=== PATIENT | male | born 1950 | race Caucasian/White ===

== ENCOUNTER 2017-06-02 12:58 | Inpatient (IN) | payer OTHER ==
[2017-06-02] MEDS: IPRATROPIUM (NEB) 0.5 MG/2.5 ML AMP NEB (14:31)
[2017-06-02] MEDS: ALBUTEROL 0.5% (NEB) 2.5 MG/0.5 ML AMP NEB (14:31)
[2017-06-02] MEDS: LORAZEPAM 2 MG INJ IV (14:48)
[2017-06-02] MEDS: SOD CHLORIDE 0.9% 1,000 ML IV (14:48)
[2017-06-02] MEDS: METHYLPREDNISOLONE 125 MG INJ IV (14:48)
[2017-06-02] MEDS: ONDANSETRON 4 MG INJ IV (14:56)
[2017-06-02] MEDS: HYDROmorphONE 1 MG/ML SYG IV (14:56)
[2017-06-02 15:16] LABS: ADD MAN DIFF? NO
[2017-06-02 15:18] LABS: WHITE BLOOD COUNT 9.2 10^3/ul (4.8-10.8)
[2017-06-02 15:18] LABS: ABNORMAL IP MESSAGE 1; BASOPHILS % 0.2 % (0.0-2.0); EOSINOPHILS # 0.5 10^3/ul (0.0-0.5); EOSINOPHILS % 5.1 % (0.0-7.0); HEMOGLOBIN 14.9 g/dl (14.0-18.0); LYMPHOCYTES # 0.3 10^3/ul (0.8-2.9); LYMPHOCYTES % 3.4 % (15.0-51.0); MEAN CORPUSCULAR HEMOGLOBIN 32.1 pg (29.0-33.0); MEAN CORPUSCULAR HGB CONC 33.1 g/dl (32.0-37.0); MEAN PLATELET VOLUME 11.9 fl (7.4-10.4); MONOCYTE # 1.1 10^3/ul (0.3-0.9); MONOCYTES % 11.4 % (0.0-11.0); NEUTROPHIL # 7.3 10^3/ul (1.6-7.5); PLATELET COUNT 200 10^3/UL (140-415); POSITIVE DIFF @See below; RED BLOOD COUNT 4.64 10^6/ul (4.70-6.10); RED CELL DISTRIBUTION WIDTH 12.3 % (11.5-14.5)
[2017-06-02 15:50] LABS: ALANINE AMINOTRANSFERASE 69 IU/L (13-69); ALBUMIN 4.6 g/dl (3.3-4.9); ALBUMIN/GLOBULIN RATIO 1.48; ALKALINE PHOSPHATASE 60 IU/L (42-121); ANION GAP 18 (8-16); ASPARTATE AMINO TRANSFERASE 44 IU/L (15-46); BILIRUBIN,INDIRECT 0.4 mg/dl (0-1.1); BILIRUBIN,TOTAL 0.4 mg/dl (0.2-1.3); BLOOD UREA NITROGEN 18 mg/dl (7-20); CALCIUM 9.2 mg/dl (8.4-10.2); CARBON DIOXIDE 27 mmol/L (21-31); CHLORIDE 96 mmol/L (97-110); CREATININE 0.92 mg/dl (0.61-1.24); GLUCOSE 102 mg/dl (70-220); POTASSIUM 4.7 mmol/L (3.5-5.1); SODIUM 136 mmol/L (135-144); TOTAL PROTEIN 7.7 g/dl (6.1-8.1)
[2017-06-02 15:55] LABS: B-TYPE NATRIURETIC PEPTIDE 258 PG/ML (0-125)
[2017-06-02] MEDS: IPRATROPIUM (NEB) 0.5 MG/2.5 ML AMP INH (18:44)
[2017-06-02] MEDS: ALBUTEROL 0.5% (NEB) 2.5 MG/0.5 ML AMP INH (18:44)
[2017-06-02] MEDS ORDERED: ACETAMINOPHEN 325 MG TAB PO ×2 (19:30→22:30)
[2017-06-02] MEDS ORDERED: ONDANSETRON 4 MG INJ IV (19:30)
[2017-06-02] MEDS ORDERED: NACL 0.9% 3 ML SYG IV (22:30)
[2017-06-02] MEDS ORDERED: ONDANSETRON 4 MG TAB PO (22:30)
[2017-06-02] MEDS ORDERED: DOCUSATE SODIUM 100 MG CAP PO (22:30)
[2017-06-02] MEDS: GUAIFENESIN 20 MG/ML 5ML CUP PO (23:17)
[2017-06-02] MEDS: IPRATROPIUM (NEB) 0.5 MG/2.5 ML AMP HHN (23:35)
[2017-06-03] MEDS: FAMOTIDINE 20 MG TAB PO ×3 (00:16→20:18)
[2017-06-03] MEDS: SOD CHLORIDE 0.9% 1,000 ML IV ×2 (00:16→11:03)
[2017-06-03] MEDS ORDERED: ALBUTEROL/IPRATROPIUM (NEB) 3 ML AMP HHN (01:00)
[2017-06-03] MEDS: IPRATROPIUM (NEB) 0.5 MG/2.5 ML AMP HHN ×6 (01:13→21:34)
[2017-06-03] MEDS: GUAIFENESIN 20 MG/ML 5ML CUP PO ×2 (01:30→03:49)
[2017-06-03] MEDS: LORAZEPAM 2 MG INJ IV (01:31)
[2017-06-03] MEDS: GUAIFENESIN/DM 5ML CUP PO ×5 (05:25→20:18)
[2017-06-03 06:51] LABS: ADD MAN DIFF? NO
[2017-06-03 06:56] LABS: ABNORMAL IP MESSAGE 1; BASOPHILS % 0.1 % (0.0-2.0); HEMATOCRIT 40.7 % (42.0-52.0); HEMOGLOBIN 13.6 g/dl (14.0-18.0); LYMPHOCYTES # 0.4 10^3/ul (0.8-2.9); LYMPHOCYTES % 4.4 % (15.0-51.0); MEAN CORPUSCULAR HEMOGLOBIN 32.2 pg (29.0-33.0); MEAN CORPUSCULAR HGB CONC 33.4 g/dl (32.0-37.0); MEAN CORPUSCULAR VOLUME 96.2 fl (82.0-101.0); MEAN PLATELET VOLUME 12.1 fl (7.4-10.4); MONOCYTE # 1.1 10^3/ul (0.3-0.9); MONOCYTES % 11.8 % (0.0-11.0); NEUTROPHIL # 7.9 10^3/ul (1.6-7.5); NEUTROPHILS % 82.9 % (39.0-77.0); PLATELET COUNT 188 10^3/UL (140-415); POSITIVE DIFF @See below; RED BLOOD COUNT 4.23 10^6/ul (4.70-6.10); RED CELL DISTRIBUTION WIDTH 12.6 % (11.5-14.5)
[2017-06-03 06:56] LABS: WHITE BLOOD COUNT 9.6 10^3/ul (4.8-10.8)
[2017-06-03 07:54] LABS: ANION GAP 17 (8-16); BLOOD UREA NITROGEN 19 mg/dl (7-20); CALCIUM 8.7 mg/dl (8.4-10.2); CARBON DIOXIDE 25 mmol/L (21-31); CHLORIDE 101 mmol/L (97-110); CREATININE 0.88 mg/dl (0.61-1.24); GLUCOSE 108 mg/dl (70-220); POTASSIUM 4.5 mmol/L (3.5-5.1); SODIUM 138 mmol/L (135-144)
[2017-06-03] MEDS: METHYLPREDNISOLONE 125 MG INJ IV (08:38)
[2017-06-03] MEDS: DOCUSATE SODIUM 100 MG CAP PO ×2 (08:38→20:18)
[2017-06-03] MEDS: HYDROCODONE/APAP (5/325) TAB PO ×3 (08:38→20:20)
[2017-06-03] MEDS: ENOXAPARIN 40 MG/0.4 ML SYG SC (08:45)
[2017-06-03 09:19] LABS: THYROID STIMULATING HORMONE 0.756 MIU/L (0.465-4.680)
[2017-06-04] MEDS: IPRATROPIUM (NEB) 0.5 MG/2.5 ML AMP HHN ×6 (01:09→19:40)
[2017-06-04] MEDS: GUAIFENESIN/DM 5ML CUP PO ×6 (01:40→23:48)
[2017-06-04] MEDS: SOD CHLORIDE 0.9% 1,000 ML IV ×4 (01:55→22:08)
[2017-06-04] MEDS: FAMOTIDINE 20 MG TAB PO ×2 (07:59→19:38)
[2017-06-04] MEDS: DOCUSATE SODIUM 100 MG CAP PO ×2 (07:59→19:38)
[2017-06-04] MEDS: METHYLPREDNISOLONE 125 MG INJ IV (07:59)
[2017-06-04] MEDS: ENOXAPARIN 40 MG/0.4 ML SYG SC (08:06)
[2017-06-04] MEDS: HYDROCODONE/APAP (5/325) TAB PO (20:08)
[2017-06-04] MEDS: ZOLPIDEM 5 MG TAB PO (22:08)
[2017-06-05] MEDS: IPRATROPIUM (NEB) 0.5 MG/2.5 ML AMP HHN ×3 (01:26→08:50)
[2017-06-05] MEDS: GUAIFENESIN/DM 5ML CUP PO ×4 (05:09→20:32)
[2017-06-05] MEDS: DOCUSATE SODIUM 100 MG CAP PO ×2 (08:58→20:32)
[2017-06-05] MEDS: FAMOTIDINE 20 MG TAB PO ×2 (08:58→20:32)
[2017-06-05] MEDS: METHYLPREDNISOLONE 125 MG INJ IV (08:58)
[2017-06-05] MEDS: BISACODYL (EC) 5 MG TAB PO (08:58)
[2017-06-05 09:04] LABS: ADD MAN DIFF? NO
[2017-06-05] MEDS: ENOXAPARIN 40 MG/0.4 ML SYG SC (09:06)
[2017-06-05 09:09] LABS: BASOPHILS % 0.1 % (0.0-2.0); EOSINOPHILS % 0.1 % (0.0-7.0); HEMATOCRIT 35.1 % (42.0-52.0); HEMOGLOBIN 11.5 g/dl (14.0-18.0); LYMPHOCYTES # 0.9 10^3/ul (0.8-2.9); MEAN CORPUSCULAR HEMOGLOBIN 31.9 pg (29.0-33.0); MEAN CORPUSCULAR HGB CONC 32.8 g/dl (32.0-37.0); MEAN CORPUSCULAR VOLUME 97.2 fl (82.0-101.0); MEAN PLATELET VOLUME 12.2 fl (7.4-10.4); MONOCYTE # 0.7 10^3/ul (0.3-0.9); MONOCYTES % 9.1 % (0.0-11.0); NEUTROPHIL # 5.9 10^3/ul (1.6-7.5); NEUTROPHILS % 78.4 % (39.0-77.0); PLATELET COUNT 143 10^3/UL (140-415); RED BLOOD COUNT 3.61 10^6/ul (4.70-6.10); RED CELL DISTRIBUTION WIDTH 12.3 % (11.5-14.5)
[2017-06-05 09:09] LABS: WHITE BLOOD COUNT 7.5 10^3/ul (4.8-10.8)
[2017-06-05 09:32] LABS: ANION GAP 9 (8-16); BLOOD UREA NITROGEN 18 mg/dl (7-20); CALCIUM 6.6 mg/dl (8.4-10.2); CARBON DIOXIDE 26 mmol/L (21-31); CHLORIDE 107 mmol/L (97-110); CREATININE 0.72 mg/dl (0.61-1.24); GLUCOSE 68 mg/dl (70-220); MAGNESIUM 1.4 mg/dl (1.7-2.5); PHOSPHORUS 2.6 mg/dl (2.5-4.9); POTASSIUM 3.2 mmol/L (3.5-5.1); SODIUM 139 mmol/L (135-144)
[2017-06-05] MEDS: SOD CHLORIDE 0.9% 1,000 ML IV ×2 (11:30→21:30)
[2017-06-05] MEDS: ALBUTEROL/IPRATROPIUM (NEB) 3 ML AMP HHN ×3 (11:51→20:40)
[2017-06-05] MEDS: MAGNESIUM OXIDE 400 MG TAB PO ×2 (12:04→20:32)
[2017-06-05] MEDS: POTASSIUM CHLORIDE (SR) 20 MEQ TAB PO (12:04)
[2017-06-05] MEDS: AZITHROMYCIN 250 MG TAB PO (12:04)
[2017-06-05] MEDS: IOHEXOL 300MG/ML 150 ML BTL (14:28)
[2017-06-05] MEDS: IOHEXOL 350MG/ML 50 ML BTL (15:30)
[2017-06-05] MEDS: SOD CHLORIDE 0.9% 100 ML (15:30)
[2017-06-05] MEDS: IOHEXOL 100 ML (15:30)
[2017-06-05] MEDS: PANTOPRAZOLE (EC) 40 MG TAB PO (17:43)
[2017-06-05] MEDS: METHYLPREDNISOLONE 40 MG INJ IV ×2 (17:43→23:58)
[2017-06-05] MEDS: ZOLPIDEM 5 MG TAB PO (20:32)
[2017-06-06] MEDS: ALBUTEROL/IPRATROPIUM (NEB) 3 ML AMP HHN ×4 (02:21→16:38)
[2017-06-06] MEDS: METHYLPREDNISOLONE 40 MG INJ IV ×2 (05:21→11:52)
[2017-06-06] MEDS: PANTOPRAZOLE (EC) 40 MG TAB PO (05:22)
[2017-06-06] MEDS: SOD CHLORIDE 0.9% 1,000 ML IV ×2 (07:30→11:52)
[2017-06-06 08:15] LABS: ADD MAN DIFF? NO
[2017-06-06] MEDS: MAGNESIUM OXIDE 400 MG TAB PO (08:15)
[2017-06-06] MEDS: FAMOTIDINE 20 MG TAB PO (08:15)
[2017-06-06] MEDS: DOCUSATE SODIUM 100 MG CAP PO (08:15)
[2017-06-06] MEDS: AZITHROMYCIN 250 MG TAB PO (08:15)
[2017-06-06] MEDS: ENOXAPARIN 40 MG/0.4 ML SYG SC (08:18)
[2017-06-06 08:23] LABS: ABNORMAL IP MESSAGE 1; HEMATOCRIT 38.4 % (42.0-52.0); LYMPHOCYTES # 0.4 10^3/ul (0.8-2.9); LYMPHOCYTES % 5.9 % (15.0-51.0); MEAN CORPUSCULAR HEMOGLOBIN 32.3 pg (29.0-33.0); MEAN CORPUSCULAR HGB CONC 33.9 g/dl (32.0-37.0); MEAN CORPUSCULAR VOLUME 95.5 fl (82.0-101.0); MEAN PLATELET VOLUME 11.5 fl (7.4-10.4); MONOCYTE # 0.4 10^3/ul (0.3-0.9); NEUTROPHIL # 5.7 10^3/ul (1.6-7.5); NEUTROPHILS % 87.8 % (39.0-77.0); PLATELET COUNT 149 10^3/UL (140-415); POSITIVE DIFF @See below; RED BLOOD COUNT 4.02 10^6/ul (4.70-6.10); RED CELL DISTRIBUTION WIDTH 12.2 % (11.5-14.5)
[2017-06-06 08:23] LABS: WHITE BLOOD COUNT 6.5 10^3/ul (4.8-10.8)
[2017-06-06 09:12] LABS: ANION GAP 16 (8-16); BLOOD UREA NITROGEN 19 mg/dl (7-20); CALCIUM 8.4 mg/dl (8.4-10.2); CARBON DIOXIDE 29 mmol/L (21-31); CHLORIDE 100 mmol/L (97-110); CREATININE 0.75 mg/dl (0.61-1.24); GLUCOSE 176 mg/dl (70-220); MAGNESIUM 1.9 mg/dl (1.7-2.5); PHOSPHORUS 3.9 mg/dl (2.5-4.9); POTASSIUM 4.5 mmol/L (3.5-5.1); SODIUM 140 mmol/L (135-144)
[2017-06-06] MEDS: GUAIFENESIN/DM 5ML CUP PO (12:21)
[2017-06-06] MEDS ORDERED: ALBUTEROL/IPRATROPIUM (NEB) 3 ML AMP HHN (17:00)
[2017-06-06] MEDS ORDERED: SALMETEROL/FLUTICASONE 500/50 INHA INH (21:00)
[2017-06-06] MEDS ORDERED: METHYLPREDNISOLONE 40 MG INJ IV (21:00)
== END 2017-06-06 20:15 | DRG 191 ==
LOC: E/R 12:58 → TEL 19:07
DX: J44.1 Chronic obstructive pulmonary disease with (acute) exacerbation (principal); J45.901 Unspecified asthma with (acute) exacerbation; I31.3 Pericardial effusion (noninflammatory); J43.9 Emphysema, unspecified; R91.8 Other nonspecific abnormal finding of lung field; F17.200 Nicotine dependence, unspecified, uncomplicated
CPT/HCPCS: 70486; 71010; 71275; 80048; 80053; 83735; 83880; 84100; 84443; 85025; 93005; 93306; 94640; 94644; 94645; 94664; 96374; 96375; 99285-25